=== PATIENT | female | born 1965 | race Caucasian/White ===

== ENCOUNTER 2018-07-31 12:52 | Emergency (ER) | payer OTHER ==
[~2018-07-31] VITALS: Ht 165.1 cm; Wt 83.4 kg
[2018-07-31 13:20] VITALS: BP 149/75; PULSE 76; RESP 18; Ht 165.1 cm; Wt 83.4 kg
[2018-07-31] MEDS ORDERED: IBUP800T48 PO (15:29)
[2018-07-31] MEDS ORDERED: HYDR-4011 PO (15:29)
--- NOTE | 2018-07-31 15:31 | ERD ---
ER Documentation Chief Complaint Chief Complaint LT LEG PAIN X 3 MONTHS ROS All systems reviewed and are negative except as per history of present illness. Medications Home Meds Active Scripts Hydrocodone/Acetaminophen ([place] 5-325 Tablet) 1 Each Tablet, 1 EACH PO Q6H PRN for PAIN, #10 TAB Prov:KVNG COON DO 07/31/18 Ibuprofen* (Motrin*) 800 Mg Tab, 800 MG PO Q6, #30 TAB Prov:COONKVNG 07/31/18 PMhx/Soc History of Surgery: No Anesthesia Reaction: No Hx Neurological Disorder: No Hx Respiratory Disorders: No Hx Cardiac Disorders: No Hx Psychiatric Problems: Yes (depression) Hx Miscellaneous Medical Probl: Yes (thyroid, arthritis) Hx Alcohol Use: No Hx Substance Use: No Hx Tobacco Use: No Smoking Status: Never smoker Physical Exam Vitals Vital Signs Date Temp Pulse Resp B/P (MAP) Pulse Ox O2 O2 Flow FiO2 Time Delivery Rate 07/31/18 98.2 76 18 149/75 98 13:20 (99) Physical Exam Const: No acute distress Head: Atraumatic Eyes: Normal Conjunctiva ENT: Normal External Ears, Nose and Mouth. Neck: Full range of motion. No meningismus. Resp: Clear to auscultation bilaterally Cardio: Regular rate and rhythm, no murmurs Abd: Soft, non tender, non distended. Normal bowel sounds Skin: No petechiae or rashes Back: No midline or flank tenderness Ext: No cyanosis, or edema Neur: Awake and alert Psych: Normal Mood and Affect Departure Diagnosis: Primary Impression: Left leg pain Condition: Fair Patient Instructions: Reducing Knee Pain and Swelling Additional Instructions: Call your primary care doctor TOMORROW for an appointment during the next 1-2 days.See the doctor sooner or return here if your condition worsens before your appointment time. 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
== END 2018-07-31 15:36 | disposition home or self-care (01) ==
LOC: FTE 12:52
DX: M79.605 Pain in left leg (principal)
CPT/HCPCS: 73562; 93971; Z7502